=== PATIENT | male | born 1945 | race Caucasian/White ===

== ENCOUNTER → 2019-09-08 | Outpatient (CLI) | payer OTHER, SELFPAY ==
--- NOTE | 2019-09-08 13:30 | AVDS_ITS ---
Reason For Study: complications due to renal dialysis RIGHT Inflow art 247.7/24.6 cm/s. Inflow art Volflow 1269 ml/min Prox Anast 469.1/240.6 cm/s. Prox Anast Volflow 2570 ml/min Prox Graft 384.7/171.8 cm/s Prox Graft Volflow 2504 ml/min Mid Graft 211.7/72.4 cm/s Mid Graft Volflow 2062 ml/min Dist Graft 286.0/142.1 cm/s. Dist Graft Volflow 2150 ml/min Outflow 199.2/89.2 cm/s. Outflow Volflow 1804 ml/min. Interpretation Summary Patent fistula with diameters, 6.1, 4, 6.7, 6.2, 4.3, and 6.7mm. Flow 1269. Ordering Physician: Sylvain Lima Performed By: Raf Dsouza RVT
== END | disposition home or self-care (01) ==
LOC: CVS 13:24
PROVIDERS: PCP Family Medicine; Referring Provider Surgery Vascular Surgery; Visit Provider Surgery Vascular Surgery
DX: T82.858A Stenosis of other vascular prosthetic devices, implants and grafts, initial encounter (principal); N18.6 End stage renal disease
CPT/HCPCS: 93990

== ENCOUNTER → 2019-10-27 12:39 | Outpatient (CLI) | payer OTHER, SELFPAY ==
--- NOTE | 2019-10-27 12:41 | AVDS_ITS ---
Reason For Study: Complication due to renal dialysis device RIGHT Inflow art 300.2/131.7 cm/s. Inflow art Volflow 1350 ml/min Prox Anast 539.6/263.9 cm/s. Prox Anast Volflow 954 ml/min Prox Graft 395.9/157.7 cm/s Prox Graft Volflow 2737 ml/min Mid Graft 346/136 cm/s Mid Graft Volflow 3797 ml/min Dist Graft 190.7/88.7 cm/s. Dist Graft Volflow 1837 ml/min Outflow 237.8/96.5 cm/s. Outflow Volflow 1716 ml/min. Interpretation Summary Patent AVF with flow 1350 and diameter 10.8, 8, 6.8, and 6.6mm outflow. Ordering Physician: Sylvain Lima Performed By: Pippa Nelson RVT
== END ==
PROVIDERS: PCP Surgery Vascular Surgery; Referring Provider Surgery Vascular Surgery; Visit Provider Surgery Vascular Surgery
DX: T82.858A Stenosis of other vascular prosthetic devices, implants and grafts, initial encounter (principal); N18.6 End stage renal disease
CPT/HCPCS: 93990

== ENCOUNTER → 2020-01-20 09:52 | Outpatient (CLI) | payer OTHER, SELFPAY ==
--- NOTE | 2020-01-20 09:56 | AVDS_ITS ---
Reason For Study: Complications due to renal dialysis device, ESRD RIGHT Inflow art 233.6/96.4 cm/s. Inflow art Volflow 1144 ml/min Prox Anast 454.8/214.2 cm/s. Prox Anast Volflow 898.9 ml/min Prox Graft 268.6/108.3 cm/s Prox Graft Volflow 3032 ml/min Mid Graft 69.1/50 cm/s Mid Graft Volflow 2117 ml/min Dist Graft 590.6/293.8 cm/s. Dist Graft Volflow 2553 ml/min Outflow 154/73.1 cm/s. Outflow Volflow 1718 ml/min. Interpretation Summary WQidely patent AVG with flow 1144 ml/min. No stenosis seen but distal graft psv 590. Ordering Physician: Sylvain Lima Performed By: Pippa Nelson RVT
== END ==
PROVIDERS: PCP Surgery Vascular Surgery; Referring Provider Surgery Vascular Surgery; Visit Provider Surgery Vascular Surgery
DX: T85.858A Stenosis due to other internal prosthetic devices, implants and grafts, initial encounter (principal); N18.6 End stage renal disease
CPT/HCPCS: 93990